=== PATIENT | male | born 1940 | race Caucasian/White ===

== ENCOUNTER → 2022-04-25 | Outpatient (CLI) | payer MEDICARE ==
[~2022-04-25] MED LIST: CARV12.511 PO; DOXA4TAB2 PO; FURO20TA6 PO; LISI5TAB21 PO; MV-M1TAB20 PO; VITAMIN B12 PO; ZINC50TA15 PO
== END | disposition home or self-care (01) ==
LOC: RAH 07:33
PROVIDERS: ATTEND Orthopaedic Surgery
DX: S76.111D Strain of right quadriceps muscle, fascia and tendon, subsequent encounter (principal); X58.XXXD Exposure to other specified factors, subsequent encounter; M25.461 Effusion, right knee
CPT/HCPCS: 73721

== ENCOUNTER → 2023-07-09 | Outpatient (CLI) | payer MEDICARE ==
[~2023-07-09] MED LIST changes: +DOXA-15 PO; -DOXA4TAB2 PO
== END | disposition home or self-care (01) ==
LOC: RAH 12:44
PROVIDERS: ATTEND Internal Medicine Interventional Cardiology
DX: R06.09 Other forms of dyspnea (principal)
CPT/HCPCS: 71046